=== PATIENT | female | born 1990 | race Caucasian/White ===

== ENCOUNTER → 2016-08-27 | Outpatient (CLI) | payer OTHER ==
[~2016-08-27] MED LIST: IBUP80TA PO; PERCOCET PO; PRENTAB7 PO
[2016-08-27 09:39] LABS: ALBUMIN 3.6 GM/DL (3.2-5.2); ALBUMIN/GLOBULIN RATIO 1.06 (1.00-1.93); ALKALINE PHOSPHATASE 51 U/L (45-117); ALT/SGPT 32 U/L (12-78); ANION GAP 8 MEQ/L (8-16); AST/SGOT 22 U/L (15-37); BILIRUBIN,TOTAL 0.5 MG/DL (0.2-1.0); BLOOD UREA NITROGEN 16 MG/DL (7-18); CALCIUM LEVEL 8.6 MG/DL (8.5-10.1); CARBON DIOXIDE LEVEL 28 MEQ/L (21-32); CHLORIDE LEVEL 105 MEQ/L (98-107); CHOLESTEROL LEVEL 181 MG/DL (<200); FREE T4 1.17 NG/DL (0.76-1.46); GLOMERULAR FILTRATION RATE > 60.0 (>60); GLUCOSE, FASTING 91 MG/DL (70-105); POTASSIUM SERUM 4.2 MEQ/L (3.5-5.1); SODIUM LEVEL 141 MEQ/L (136-145); TRIGLYCERIDES LEVEL 85 MG/DL (<150)
== END ==
LOC: M LAB 08:39
PROVIDERS: ATTEND Nurse Practitioner Family
DX: E66.3 Overweight (principal)

== ENCOUNTER → 2016-11-22 | Outpatient (REF) | payer OTHER ==
[2016-11-22 18:54] LABS: CONTROL LINE UCG INT CTR LINE PRESENT
== END ==
LOC: M LAB REF 17:07
PROVIDERS: ATTEND Physician Assistant
DX: M54.5 Low back pain (principal); J20.9 Acute bronchitis, unspecified

== ENCOUNTER → 2016-11-26 | Outpatient (REF) | payer OTHER | LOC: M SFHCPLAZ 16:18 | PROVIDERS: ATTEND Nurse Practitioner Family | DX: N91.2 Amenorrhea, unspecified (principal) ==

== ENCOUNTER → 2016-11-26 | Outpatient (CLI) | payer OTHER ==
[2016-11-26 18:03] LABS: CONTROL LINE HCG INT CTR LINE PRESENT
== END ==
LOC: M LAB 16:49
PROVIDERS: ATTEND Nurse Practitioner Family
DX: N91.2 Amenorrhea, unspecified (principal)

== ENCOUNTER 2017-12-03 06:49 | Day surgery (SDC) | payer OTHER ==
[2017-12-03] MEDS ORDERED: LR 1,000 ML IV (07:00)
[2017-12-03] MEDS: LIDOCAINE 3.5 % 1ML OPHTH TOPICAL GEL OU (07:30)
[2017-12-03 07:44] LABS: CONTROL LINE UCG INT CTR LINE PRESENT; URINE PREG TEST NEGATIVE (NEGATIVE)
[2017-12-03] MEDS ORDERED: MIDAZOLAM INJ 2 MG/2 ML VIAL (J2250) As Ordered (07:56)
[2017-12-03] MEDS ORDERED: fentaNYL 100 MCG/2 ML INJECTION (J3010) As Ordered (07:56)
[2017-12-03] MEDS ORDERED: MAXITROL OPHTH SUSP 5 ML As Ordered (08:57)
[2017-12-03] MEDS: POVIDONE-IODINE 5% OPHTH PREP SOL 30ML As Ordered (09:05)
[2017-12-03] MEDS ORDERED: LIDOCAINE 2% INJ 100 MG/5 ML SDV (FOR ANES.) As Ordered (09:36)
[2017-12-03] MEDS ORDERED: PROPOFOL 200 MG/20 ML VIAL As Ordered ×3 (09:36)
[2017-12-03] MEDS ORDERED: IBUPROFEN 600 MG TAB As Ordered (10:01)
[2017-12-03] MEDS: IBUPROFEN 600 MG TAB PO (10:10)
== END 2017-12-03 10:48 | disposition home or self-care (01) ==
LOC: M SDC 06:49
DX: H04.203 Unspecified epiphora, bilateral (principal); F41.9 Anxiety disorder, unspecified; Z79.899 Other long term (current) drug therapy
CPT/HCPCS: 68811

== ENCOUNTER → 2017-12-25 | Outpatient (REF) | payer OTHER ==
[2017-12-26 14:14] LABS: CHLAMYDIA DNA AMPLIFICATION NEGATIVE (NEGATIVE); GC DNA AMPLIFICATION NEGATIVE (NEGATIVE)
== END ==
LOC: M SFHCPLAZ 10:27
DX: R35.0 Frequency of micturition (principal)

== ENCOUNTER → 2017-12-25 | Outpatient (REF) | payer OTHER ==
[2017-12-26 08:13] LABS: CHLAMYDIA DNA AMPLIFICATION NEGATIVE (NEGATIVE); GC DNA AMPLIFICATION NEGATIVE (NEGATIVE)
== END ==
LOC: M SFHCPLAZ 07:37
DX: R35.0 Frequency of micturition (principal)

== ENCOUNTER → 2019-01-14 | Outpatient (CLI) | payer OTHER ==
[~2019-01-14] MED LIST changes: +AUGM875T28; +ESCI20TA; +FISH100049 PO; +JUNETAB2; +OFLO3OPSO; +PROBCAP4 PO; +SUPECAP24 PO; +VITA100067 PO
[2019-01-14 10:06] LABS: ALBUMIN 3.4 GM/DL (3.2-5.2); ALT/SGPT 86 U/L (12-78); BILIRUBIN,TOTAL 0.6 MG/DL (0.2-1.0); BLOOD UREA NITROGEN 14 MG/DL (7-18); CARBON DIOXIDE LEVEL 29 MEQ/L (21-32); CHLORIDE LEVEL 104 MEQ/L (98-107); CHOLESTEROL LEVEL 213 MG/DL (<200); CHOLESTEROL RISK RATIO 2.696 (<5); CREATININE FOR GFR 0.87 MG/DL (0.55-1.30); GLOMERULAR FILTRATION RATE > 60.0 (>60); GLUCOSE, FASTING 92 MG/DL (70-100); HDL CHOLESTEROL 79 MG/DL (>40); LDL CHOLESTEROL 116 MG/DL (<100); NON-HDL-C 134 MG/DL; POTASSIUM SERUM 4.5 MEQ/L (3.5-5.1); SODIUM LEVEL 139 MEQ/L (136-145); TOTAL PROTEIN 6.9 GM/DL (6.4-8.2); TRIGLYCERIDES LEVEL 89 MG/DL (<150)
[2019-01-14 10:38] LABS: TOTAL 25(OH) VITAMIN D 26.7 NG/ML (30.0-100.0)
== END ==
LOC: M LAB 08:50
PROVIDERS: ATTEND Nurse Practitioner Family
DX: Z00.00 Encounter for general adult medical examination without abnormal findings (principal); F41.8 Other specified anxiety disorders; Z68.38 Body mass index [BMI] 38.0-38.9, adult; Z13.220 Encounter for screening for lipoid disorders

== ENCOUNTER → 2019-03-29 | Outpatient (CLI) | payer OTHER ==
[2019-03-29 13:02] LABS: ALBUMIN 3.5 GM/DL (3.2-5.2); ALT/SGPT 35 U/L (12-78); BILIRUBIN,TOTAL 0.5 MG/DL (0.2-1.0); BLOOD UREA NITROGEN 14 MG/DL (7-18); CALCIUM LEVEL 8.7 MG/DL (8.5-10.1); CARBON DIOXIDE LEVEL 28 MEQ/L (21-32); CHLORIDE LEVEL 106 MEQ/L (98-107); CREATININE FOR GFR 0.87 MG/DL (0.55-1.30); GLOMERULAR FILTRATION RATE > 60.0 (>60); GLUCOSE, FASTING 92 MG/DL (70-100); POTASSIUM SERUM 4.1 MEQ/L (3.5-5.1); SODIUM LEVEL 140 MEQ/L (136-145); TOTAL PROTEIN 6.7 GM/DL (6.4-8.2)
== END ==
LOC: M LAB 12:14
PROVIDERS: ATTEND Nurse Practitioner Family
DX: R94.5 Abnormal results of liver function studies (principal)

== ENCOUNTER → 2019-09-04 | Outpatient (REF) | payer OTHER ==
[2019-09-04 13:08] LABS: BASO % 0.6 % (0.0-1.0); EOS # 0.1 10^3/uL (0.0-0.5); EOS % 1.6 % (0.0-3.0); HEMATOCRIT 48.4 % (36.0-47.0); HEMOGLOBIN 15.2 g/dl (12.0-15.5); LYMPH # 2.8 10^3/uL (1.5-5.0); LYMPH % 40.8 % (24.0-44.0); MEAN CORPUSCULAR HEMOGLOBIN 29.4 pg (27.0-33.0); MEAN CORPUSCULAR HGB CONC 31.4 g/dl (32.0-36.5); MEAN CORPUSCULAR VOLUME 93.6 fl (80.0-96.0); MONO # 0.6 10^3/uL (0.0-0.8); MONO % 8.9 % (0.0-5.0); NEUTROPHILS # 3.2 10^3/uL (1.5-8.5); NEUTROPHILS % 47.8 % (36.0-66.0); PLATELET COUNT, AUTOMATED 351 10^3/uL (150-450); RED BLOOD COUNT 5.17 10^6/uL (4.00-5.40); WHITE BLOOD COUNT 6.7 10^3/uL (4.0-10.0)
[2019-09-04 13:59] LABS: ALBUMIN 4.1 GM/DL (3.2-5.2); ALT/SGPT 26 U/L (12-78); BILIRUBIN,TOTAL 0.5 MG/DL (0.2-1.0); BLOOD UREA NITROGEN 16 MG/DL (7-18); CALCIUM LEVEL 9.2 MG/DL (8.5-10.1); CARBON DIOXIDE LEVEL 28 MEQ/L (21-32); CHLORIDE LEVEL 106 MEQ/L (98-107); CHOLESTEROL LEVEL 197 MG/DL (<200); CHOLESTEROL RISK RATIO 2.592 (<5); CREATININE FOR GFR 0.95 MG/DL (0.55-1.30); FREE T4 1.14 NG/DL (0.76-1.46); GLOMERULAR FILTRATION RATE > 60.0 (>60); GLUCOSE, FASTING 102 MG/DL (70-100); HDL CHOLESTEROL 76 MG/DL (>40); LDL CHOLESTEROL 108 MG/DL (<100); NON-HDL-C 121 MG/DL; POTASSIUM SERUM 4.3 MEQ/L (3.5-5.1); SODIUM LEVEL 140 MEQ/L (136-145); TOTAL PROTEIN 7.4 GM/DL (6.4-8.2); TRIGLYCERIDES LEVEL 66 MG/DL (<150)
[2019-09-04 14:00] LABS: TOTAL 25(OH) VITAMIN D 41.3 NG/ML (30.0-100.0)
== END ==
LOC: M LAB REF 12:33
PROVIDERS: ATTEND Family Medicine
DX: Z13.228 Encounter for screening for other metabolic disorders (principal); M25.50 Pain in unspecified joint

== ENCOUNTER → 2019-10-07 | Outpatient (CLI) | payer OTHER ==
[2019-10-07 17:25] LABS: APPEARANCE, URINE CLEAR (CLEAR); BACTERIA, URINE AUTO NEGATIVE (NEGATIVE); BILIRUBIN, URINE AUTO NEGATIVE (NEGATIVE); BLOOD, URINE BLOOD NEGATIVE (NEGATIVE); COLOR, URINE STRAW (YELLOW); GLUCOSE, URINE (UA) AUTO NEGATIVE (NEGATIVE); KETONE, URINE AUTO NEGATIVE (NEGATIVE); LEUKOCYTE ESTERASE, URINE AUTO NEGATIVE (NEGATIVE); NITRITE, URINE AUTO NEGATIVE (NEGATIVE); PROTEIN, URINE AUTO NEGATIVE (NEGATIVE); RBC, URINE AUTO 2 /HPF (0-3); SPECIFIC GRAVITY URINE AUTO 1.008 (1.002-1.035); SQUAMOUS EPITHELIAL CELL UR AU 0 /HPF (0-6); UROBILINOGEN, URINE AUTO 0.2 mg/dL (0.0-2.0); WBC, URINE AUTO 0 /HPF (0-3)
[2019-10-07 17:47] LABS: ALBUMIN 3.6 GM/DL (3.2-5.2); ALT/SGPT 27 U/L (12-78); BILIRUBIN,DIRECT 0.2 MG/DL (0.0-0.2); BILIRUBIN,TOTAL 0.6 MG/DL (0.2-1.0); TOTAL PROTEIN 6.8 GM/DL (6.4-8.2)
[2019-10-07 20:09] LABS: CHLAMYDIA DNA AMPLIFICATION NEGATIVE (NEGATIVE); GC DNA AMPLIFICATION NEGATIVE (NEGATIVE)
[2019-10-09 09:18] LABS: HIV 1&2 SCREEN CENTAUR NEGATIVE (NEGATIVE)
== END ==
LOC: M WUC 12:16
PROVIDERS: ATTEND Family Medicine
DX: Z11.3 Encounter for screening for infections with a predominantly sexual mode of transmission (principal)

== ENCOUNTER → 2020-07-04 | Outpatient (CLI) | payer SELFPAY | LOC: M LABSMTC 15:02 | PROVIDERS: ATTEND Pediatrics | DX: Z20.828 Contact with and (suspected) exposure to other viral communicable diseases (principal) ==

== ENCOUNTER 2020-09-16 09:43 | Emergency (ER) | payer OTHER, SELFPAY ==
[~2020-09-16] VITALS: Ht 175.3 cm; Wt 111.2 kg
[~2020-09-16 09:43] MED LIST changes: -ESCI20TA; +ESCI20TA16
--- OUTSIDE RECORDS SUMMARY | 2020-09-16 09:54 | CCD ---
Author Author [facility] Organization [facility] Address Unknown Phone Unavailable Care Team Providers Care Preparator Name Role Phone Janina Sam MD Unavailable Unavailable Janina Sam MD Unavailable Unavailable Janina Sam MD Unavailable Unavailable Janina Sam MD Unavailable Unavailable Janina Sam MD Unavailable Unavailable Janina Sam MD Unavailable Unavailable Janina Sam MD Unavailable Unavailable Janina Sam MD Unavailable Unavailable Janina Sam MD Unavailable Unavailable Janina Sam MD Unavailable Unavailable Janina Sam MD Unavailable Unavailable Janina Sam MD Unavailable Unavailable Janina Sam MD Unavailable Unavailable Janina Sam MD Unavailable Unavailable Janina Sam MD Unavailable Unavailable Janina Sam MD Unavailable Unavailable Janina Sam MD Unavailable Unavailable Janina Sam MD Unavailable Unavailable Janina Sam MD Unavailable Unavailable Janina Sam MD Unavailable Unavailable Janina Sam MD Unavailable Unavailable Janina Sam MD Unavailable Unavailable Janina Sam MD Unavailable Unavailable Janina Sam MD Unavailable Unavailable Janina Sam MD Unavailable Unavailable Janina Sam MD Unavailable Unavailable Janina Sam MD Unavailable Unavailable Janina Sam MD Unavailable Unavailable Janina Sam MD Unavailable Unavailable Janina Sam MD Unavailable Unavailable Janina Sam MD Unavailable Unavailable Janina Sam MD Unavailable Unavailable Janina Sam MD Unavailable Unavailable Janina Sam MD Unavailable Unavailable Janina Sam MD Unavailable Unavailable Janina Sam MD Unavailable Unavailable Janina Sam MD Unavailable Unavailable Janina Sam MD Unavailable Unavailable Janina Sam MD Unavailable Unavailable Janina Sam MD Unavailable Unavailable Janina Sam MD Unavailable Unavailable Janina Sam MD Unavailable Unavailable Janina Sam MD Unavailable Unavailable Janina Sam MD Unavailable Unavailable Janina Sam MD Unavailable Unavailable Janina Sam MD Unavailable Unavailable Janina Sam MD Unavailable Unavailable Janina Sam MD Unavailable Unavailable Janina Sam MD Unavailable Unavailable Janina Sam MD Unavailable Unavailable Janina Sam MD Unavailable Unavailable Janina Sam MD Unavailable Unavailable Janina Sam MD Unavailable Unavailable Janina Sam MD Unavailable Unavailable Janina Sam MD Unavailable Unavailable Janina Sam MD Unavailable Unavailable Janina Sam MD Unavailable Unavailable Janina Sam MD Unavailable Unavailable Janina Sam MD Unavailable Unavailable Janina Sam MD Unavailable Unavailable Janina Sam MD Unavailable Unavailable Janina Sam MD Unavailable Unavailable Janina Sam MD Unavailable Unavailable Janina Sam MD Unavailable Unavailable Janina Sam MD Unavailable Unavailable Janina Sam MD Unavailable Unavailable Janina Sam MD Unavailable Unavailable Janina Sam MD Unavailable Unavailable Janina Sam MD Unavailable Unavailable Janina Sam MD Unavailable Unavailable Janina Sam MD Unavailable Unavailable Janina Sam MD Unavailable Unavailable Janina Sam MD Unavailable Unavailable Janina Sam MD Unavailable Unavailable Janina Sam MD Unavailable Unavailable Janina Sam MD Unavailable Unavailable Janina Sam MD Unavailable Unavailable Janina Sam MD Unavailable Unavailable Janina Sam MD Unavailable Unavailable Janina Sam MD Unavailable Unavailable Janina Sam MD Unavailable Unavailable Janina Sam MD Unavailable Unavailable Janina Sam MD Unavailable Unavailable Janina Sam MD Unavailable Unavailable Janina Sam MD Unavailable Unavailable Janina Sam MD Unavailable Unavailable Janina Sam MD Unavailable Unavailable Janina Sam MD Unavailable Unavailable Janina Sam MD Unavailable Unavailable Eve JOSHUA MD Unavailable Unavailable Eve JOSHUA MD Unavailable Unavailable Eve JOSHUA MD Unavailable Unavailable Eve JOSHUA MD Unavailable Unavailable Eve JOSHUA MD Unavailable Unavailable Eve JOSHUA MD Unavailable Unavailable Eve JOSHUA MD Unavailable Unavailable Eve JOSHUA MD Unavailable Unavailable Eve JOSHUA MD Unavailable Unavailable Eve JOSHUA MD Unavailable Unavailable Eve JOSHUA MD Unavailable Unavailable Eve JOSHUA MD Unavailable Unavailable Eve JOSHUA MD Unavailable Unavailable Eve JOSHUA MD Unavailable Unavailable Eve JOSHUA MD Unavailable Unavailable Eve JOSHUA MD Unavailable Unavailable Eve JOSHUA MD Unavailable Unavailable Eve JOSHUA MD Unavailable Unavailable Eve JOSHUA MD Unavailable Unavailable Eve JOSHUA MD Unavailable Unavailable Eve JOSHUA MD Unavailable Unavailable Eve JOSHUA MD Unavailable Unavailable Eve JOSHUA MD Unavailable Unavailable Eve JOSHUA MD Unavailable Unavailable Eve JOSHUA MD Unavailable Unavailable Eve JOSHUA MD Unavailable Unavailable Eve JOSHUA MD Unavailable Unavailable Eve JOSHUA MD Unavailable Unavailable Eve JOSHUA MD Unavailable Unavailable Eve JOSHUA MD Unavailable Unavailable Eve JOSHUA MD Unavailable Unavailable Eve JOSHUA MD Unavailable Unavailable Eve JSOHUA MD Unavailable Unavailable Eve JOSHUA MD Unavailable Unavailable Eve JOSHUA MD Unavailable Unavailable Eve JOSHUA MD Unavailable Unavailable Eve JOSHUA MD Unavailable Unavailable Eve JOSHUA MD Unavailable Unavailable Eve JOSHUA MD Unavailable Unavailable vEe JOSHUA MD Unavailable Unavailable Eve JOSHUA MD Unavailable Unavailable Eve JOSHUA MD Unavailable Unavailable Eve JOSHUA MD Unavailable Unavailable Eve JOSHUA MD Unavailable Unavailable Eve JOSHUA MD Unavailable Unavailable Eve JOSHUA MD Unavailable Unavailable Eve JOSHUA MD Unavailable Unavailable Eve JOSHUA MD Unavailable Unavailable Eve JOSHUA MD Unavailable Unavailable Eve JOSHUA MD Unavailable Unavailable Eve JOSHUA MD Unavailable Unavailable Eve JOSHUA MD Unavailable Unavailable Eve JOSHUA MD Unavailable Unavailable Eve JOSHUA MD Unavailable Unavailable Eve JOSHUA MD Unavailable Unavailable Eve JOSHUA MD Unavailable Unavailable Eve JOSHUA MD Unavailable Unavailable Eve JOSHUA MD Unavailable Unavailable Eve JOSHUA MD Unavailable Unavailable Eve JOSHUA MD Unavailable Unavailable JACOBO, Eve SIMPSON MD Unavailable Unavailable JACOBO, Eve SIMPSON MD Unavailable Unavailable JACOBO, Eve SIMPSON MD Unavailable Unavailable JACOBO, Eve SIMPSON MD Unavailable Unavailable JACOBO, Eve ISMPSON MD Unavailable Unavailable JACOBO, Eve SIMPSON MD Unavailable Unavailable JACOBO, Eve SIMPSON MD Unavailable Unavailable JACOBO, Eve SIMPSON MD Unavailable Unavailable JACOBO, Eve SIMPSON MD Unavailable Unavailable JACOBO, Eve SIMPSON MD Unavailable Unavailable JACOBO, Eve SIMPSON MD Unavailable Unavailable JACOBO, Eve SIMPSON MD Unavailable Unavailable JACOBO, Eve SIMPSON MD Unavailable Unavailable JACOBO, Eve SIMPSON MD Unavailable Unavailable JACOBO, Eve SIMPSON MD Unavailable Unavailable JACOBO, Eve SIMPSON MD Unavailable Unavailable JACOBO, Eve SIMPSON MD Unavailable Unavailable JACOBO, Eve SIMPSON MD Unavailable Unavailable JACOBO, Eve SIMPSON MD Unavailable Unavailable JACOBO, Eve SIMPSON MD Unavailable Unavailable JACOBO, Eve SIMPSON MD Unavailable Unavailable JACOBO, Eve SIMPSON MD Unavailable Unavailable JACOBO, Eve SIMPSON MD Unavailable Unavailable Quiñones, Silvia PLANT ECOLOGIST Unavailable Unavailable Quiñones, Silvia PLANT ECOLOGIST Unavailable Unavailable Quiñones, Silvia PLANT ECOLOGIST Unavailable Unavailable Quiñones, Silvia PLANT ECOLOGIST Unavailable Unavailable Quiñones, Silvia PLANT ECOLOGIST Unavailable Unavailable Quiñones, Silvia PLANT ECOLOGIST Unavailable Unavailable Quiñones, Silvia PLANT ECOLOGIST Unavailable Unavailable Quiñones, Silvia PLANT ECOLOGIST Unavailable Unavailable Quiñones, Silvia PLANT ECOLOGIST Unavailable Unavailable Quiñones, Silvia PLANT ECOLOGIST Unavailable Unavailable Quiñones, Silvia PLANT ECOLOGIST Unavailable Unavailable Re-disclosure Warning The records that you are about to access may contain information from federally-assisted alcohol or drug abuse programs. If such information is present, then the following federally mandated warning applies: This information has been disclosed to you from records protected by federal confidentiality rules (42 CFR part 2). The federal rules prohibit you from making any further disclosure of this information unless further disclosure is expressly permitted by the written consent of the person to whom it pertains or as otherwise permitted by 42 CFR part 2. A general authorization for the release of medical or other information is NOT sufficient for this purpose. The Federal rules restrict any use of the information to criminally investigate or prosecute any alcohol or drug abuse patient.The records that you are about to access may contain highly sensitive health information, the redisclosure of which is protected by Article 27-F of the [facility] Public Health law. If you continue you may have access to information: Regarding HIV / AIDS; Provided by facilities licensed or operated by the [facility] Office of Mental Health; or Provided by the [facility] Office for People With Developmental Disabilities. If such information is present, then the following [facility] mandated warning applies: This information has been disclosed to you from confidential records which are protected by state law. State law prohibits you from making any further disclosure of this information without the specific written consent of the person to whom it pertains, or as otherwise permitted by law. Any unauthorized further disclosure in violation of state law may result in a fine or correction sentence or both. A general authorization for the release of medical or other information is NOT sufficient authorization for further disc losure. Encounters Encounter Providers Location Date Indications Data Source(s ) Outpatient Attender: Silvia chen 06/13/2020 07:35:00 AM EST [facility] ([facility], [facility]) Outpatient Attender: Lio Sam MD 05/27/2020 10:17:00 AM EDT [facility] Outpatient Attender: Lio Sam MD 05/27/2020 08:57:01 AM EDT [facility] Outpatient Attender: Lio Sam MD 05/19/2020 04:49:01 PM EDT [facility] Outpatient Attender: Lio Sam MD 05/12/2020 09:43:00 AM EDT [facility] Outpatient Attender: Lio Sam MD 05/01/2020 10:04:00 AM EDT [facility] Outpatient Attender: Lio Sam MD 04/29/2020 04:42:01 PM EDT [facility] Outpatient Attender: Lio Sam MD 04/29/2020 04:41:01 PM EDT [facility] Outpatient Attender: Lio Sam MD 04/29/2020 03:16:00 PM EDT [facility] Outpatient Attender: Lio Sam MD 04/01/2020 01:24:00 PM EDT [facility] Outpatient Attender: Lio Sam MD 03/18/2020 08:45:02 AM EDT [facility] Outpatient Attender: Lio SOLIS 02/12/2020 08:01:20 [address] [address] 11/16/2019 12:00:00 AM EDT [facility]CW1 ([facility]) Outpatient Attender: Lio Sam MD FP 10/20/2019 01:04:00 PM EDT [facility] Outpatient Attender: Lio Sam MD FP 10/13/2019 05:50:00 PM EDT [facility] Outpatient Attender: Lio Sam MD FP 10/13/2019 05:46:00 PM EDT [facility] Outpatient Attender: Lio Sam MD FP 10/12/2019 11:32:01 AM EDT [facility] Outpatient Attender: TATIANA JOSHUA MD FP 10/09/2019 12:22:01 P M [facility] Outpatient Attender: TATIANA JOSHUA MD FP 10/08/2019 11:22:37 A M T [facility] Outpatient Attender: TATIANA JOSHUA MD FP 10/07/2019 06:13:01 P [facility] Outpatient Attender: TATIANA JOSHUA MD FP 10/07/2019 06:13:01 P M [facility] Outpatient Attender: TATIANA JOSHUA MD FP 10/06/2019 04:09:01 P [facility] Outpatient Attender: TATIANA JOSHUA MD FP 10/02/2019 01:12:02 P [facility] Outpatient Attender: TATIANA JOSHUA MD FP 10/02/2019 01:11:01 P [facility] Outpatient Attender: TATIANA JOSHUA MD FP 09/17/2019 12:03:02 P [facility] Outpatient Attender: TATIANA JOSHUA MD FP 09/16/2019 11:23:02 A [facility] Outpatient Attender: TATIANA JOSHUA MD FP 09/16/2019 11:23:01 A [facility] Outpatient Attender: TATIANA JOSHUA MD FP 09/15/2019 03:41:00 P [facility] Outpatient Attender: TATIANA JOSHUA MD FP 09/09/2019 05:23:01 P [facility] Outpatient Attender: TATIANA JOSHUA MD FP 09/04/2019 10:09:01 A [facility] Outpatient Attender: TATIANA JOSHUA MD 09/04/2019 10:08:00 A [facility] Outpatient Attender: TATIANA JOSHUA MD 09/04/2019 09:31:02 A [facility] Outpatient Attender: TATIANA JOSHUA MD 09/01/2019 04:18:00 P [facility] Outpatient Attender: TATIANA JOSHUA MD 07/29/2019 11:50:01 A [facility] Outpatient Attender: TATIANA JOSHUA MD 07/28/2019 11:44:01 A [facility] Outpatient Attender: TATIANA JOSHUA MD 07/28/2019 11:43:00 A [facility] Outpatient Attender: TATIANA JOSHUA MD 07/28/2019 11:41:00 A [facility] Outpatient Attender: TATIANA JOSHUA MD 07/28/2019 11:39:01 A [facility] Outpatient Attender: TATIANA JOSHUA MD 07/24/2019 10:52:01 A [facility] Out[facility] 07/24/2019 10:51:00 AM [facility] Insurance Providers Payer name Policy type / Coverage type Policy ID Covered republican ID Covered republican's relationship to santoyo Policy Santoyo Plan Information SELF PAY ONLY [id number] SP [id number] R [facility] [id number] SP [id number] D [employer] Ins S [id number] S [id number] UMR P [id number] S [id number] UMR P [id number] S [id number] Armenian Heritage S [id number] S [id number] Medicaid Dental P [id number] S [id number] [employer]AN [facility] [id number] SP [id number] [facility]) O [id number] S [id number] MEDICAID M [id number] S [id number] ANS-Medicaid [id number] ANSI-Medicaid [id number] ANSI-Medicaid [id number] ANSI-Medicaid [id number] ANSI-Medicaid [id number] ANSI-Medicaid [id number] ANSI-Medicaid [id number] ANSI-Medicaid [id number] [facility] [id number] Self [id number] ANSI-Medicaid [id number] ANSI-Medicaid [id number] ANSI-Medicaid [id number] ANSI-Medicaid [id number] [facility] [id number] [facility] [id number] [employer] PLAN MCDO [id number] SP [id number] [facility] Health Maintenance Organization (HMO) [id number] Self [id number] MVP MCDO [id number] SP [id number] [facility] [id number] SP [id number] [facility] [id number] SP [id number] MEDICAID [id number] SP [id number] SELF PAY UNAVAILABLE SP UNAVAILA BLE [place] Self BCBS OF [place] 306/806 [id number] [id number] [employer] BCBS P [id number] C VYA D [employer] BCBS Dental O [id number] P [id number] Problems, Conditions, and Diagnoses Code Display Name Description Problem Type Effective Dates Data Source(s) 311 Chronic depression Chronic depression 0 04:40:09 PM EDT [facility] V74.5 Screening examination for venereal disea se Screening examination for venereal disease 10/02/2019 01:10:13 PM [facility] M25.50 Pain in unspecified joint Pain in unspecified joint 07/29/2019 11:49:47 AM [facility] Z13.228 Encounter for screening for other metabo lic disorders Encounter for screening for other metabolic disorders 07/29/2019 11:49:47 AM [facility] Results ID Date Data Source [id number] 07/04/2020 12:00:00 AM EST [facility] Name Value Range Interpretation Code Description Data Susan rce(s) Supporting Document(s) 2019-nCoV RNA XXX CORRINE+probe-Imp [facility] This lab was ordered by [facility] and reported by [facility]. ID Date Data Source [id number] 06/13/2020 12:00:00 AM EST [facility] Name Value Range Interpretation Code Description Data Susan rce(s) Supporting Document(s) SARS coronavirus 2 Ag [facility] This lab was ordered by [facility] and reported by [facility]. ID Date Data Source [id number] 05/27/2020 08:32:28 AM EDT [facility] Vital SignsBlood Pressure: 134/83 Patient History Medical History:AnxietyDepressionPanic attacksHeart murmurIrritable bowel syndromeSurgical History:csectionanal fistula surgeryFamily History:Mother- thyroidMaternal Grandmother- StrokeSocial/Personal History: Current Problems: Chronic depression (ICD-311) (FQF32-D12.1)Screening examination for venereal disease (ICD-V74.5) (LKL20-F98.3)Pain in unspecified joint (ICD10- M25.50)Encounter for screening for other metabolic disorders (ICD10- Z13.228)Problem list reviewed during this update.Current Medications: 1.5-30 MG-MCG ORAL TABLET (NORETHIN JAVIER-ETH ESTRAD-FE) one tab po QD as dir; Route: ORALACIDOPHILUS ORAL TABLET CHEWABLE (PROBIOTIC PRODUCT) One tablet by mouth every Bozena VITAMIN D-3 25 MCG (1000 UT) ORAL TABLET (CHOLECALCIFEROL) One po bid; Route: ORALZOLOFT 50 MG ORAL TABLET (SERTRALINE HCL) qd; Route: ORALMedication list reviewed during this update.Allergy list reviewed during this update.No known allergies.Past Medical History:(reviewed - no changes required) AnxietyDepressionPanic attacksHeart murmurIrritable bowel syndrome Dental Chart: Procedures:Type - CDT Code - Description B - (D1110) Prophylaxis, adult (Performed by Suzanne Cain RDH) B - (D0274) Bitewings, 4 radiographic images (Performed by Suzanne Cain RDH) B - (D0150) Comprehensive oral evaluation - new or established patient (Performed by Siobhan Gates DMD) B - (D0230) Intraoral, periapical, each additional radiographic image on Tooth # 10 (Performed by Suzanne Cain RDH) B - (D0220) Intraoral, periapical, first radiographic image on Tooth # 7 (Performed by Suzanne Cain RDH) B - (D0230) Intraoral, periapical, each additional radiographic image on Tooth # 9 (Performed by Suzanne Cain RDH) Existing:Type - CDT Code - Description[E] Resin-Based Composite - Direct On #12 Surface OD, #13 Surface OD, #14 Surface MO Chart Notes:tanya (May 27 2020 9:25AM): Additional PPE requirements due to COVID-19 in the dental setting, N95, surgical mask, hair covering, gown. [facility] with patient. No problems or concerns today. Pt. was seeing Dr. Arias. Pt. has a lingual retainerOral cancer screening-no significant find ings. [facility]- handscaled and used cavitron in all quads-pt. tolerated well, lao- mint prophy paste, floss, 4 BW's, 3 PA'sOH-Patient brushes once/day and is not flossing regularly. Pt. uses Sensitivity toothpasteLT gen marginal biofilm and marginal/introproximal calculus on LA. Light staining around the lingual retainerOHI- Advise to brush 2x a day and floss everyday. Recommended Listerine ZeroPatient is cooperative. NV- 6 month recallWaSuzanne villarreal RDH by tanya (05/27/2020 9:25 AM): ; lenard (May 27 2020 10:16AM): [facility](-). CC: none. Reviewed Xrays. Exam: no caries detected. OCS: WNL, IO/ EO completed, No significant hard findings upon clinical exam.Additional PPE requirements due to COVID-19 in the dental setting, N95, surgical mask, hair covering, gown and shieldPt was cooperative. OHI given Referral: N/A NV:recallWaSuzanne villarreal RDH by lenard (05/27/2020 10:16 AM): Tooth Notes and Watches:- Tooth 5 Watch: DistalSuzanne Cain RDH by tanya (05/27/2020 9:03 AM): Assessment & Plan Medications: 1.5-30 MG- MCG ORAL TABLETACIDOPHILUS ORAL TABLET CHEWABLERA VITAMIN D-3 25 MCG (1000 UT) ORAL TABLETZOLOFT 50 MG ORAL TABLETAllergies:No Known Allergies (updated 05/27/2020) Name Value Range Interpretation Code Description Data Susan rce(s) Supporting Document(s) ID Date Data Source [id number] 04/29/2020 03:13:25 PM EDT [facility] Measurements & CalculationsHeight: 69 inches (5 ft. 9 in.) 175.26 cm Weight: 254 pounds 4 oz. 115.57 kg Body Mass Index (BMI): 37.68BMI Interpretation: ObeseBody Surface Area (BSA): 2.29Weight Management Education Done (Nutrition/Physical Activity)Vital SignsTemperature: 99F oral Pulse Rate: 73 beats/minuteRespirat ory Rate: 18 respirations/minuteBlood Pressure: 131/90 right arm sitting automaticO2 Saturation: 96% room airVital Signs performed by: Felipe Marroquin LPN, April 29, 2020 3:37 PMInitial Intake Information From: patientRoom #: 15Infectious Disease / Travel ScreeningRecent travel for you or any close contacts? NoHave you had any close contact with anyone diagnosed with or under investigation for COVID-19 (coronavirus)? NoFever? NoRespiratory symptoms: cough, cold, congestion, shortness of breath, difficulty breathing? NoLoss of smell? NoLoss of taste? NoSmoking, Tobacco, Vaping or Smoke Exposure StatusSmoke Status: never smokerTobacco Use: NoDo you vape? NoMenstrual HistoryLast Menstrual Period (LMP): 04/18/2020Any possibility of ? NoComments: on Healthcare HistorySince your last office visit...Have you been admitted to the hospital? NoHave you been to an emergency room (ER) or urgent care clinic? NoHave you seen another healthcare provider? Yes - tuyet gossHave you seen a dentist? Yes - [facility] Intake performed by: Felipe Marroquin LPN, April 29, 2020 3:19 PMRate Your HealthIn general, would you say your health is? GoodPain AssessmentAre you currently having any pain which... You would like your provider to address? Yes Affects your activity level? YesDepression Screening - PHQ-2Over the last two weeks, have you... Had little interest or pleasure in doing things? Several days Been feeling down, depressed, or hopeless? Several days PHQ-2 Score: 2Anxiety Screening - JAZMIN-2Over the last two weeks, have you been... Feeling nervous, anxious, or on edge? Not at all Unable to stop or control worrying? Nearly every day JAZMIN-2 Score: 3Generalized Anxiety Disorder 7-Item Screening (JAZMIN- 7)Answer Guide:0 = Not at all1 = Several days2 = Over half the days3 = Nearly every dayOver the last 2 weeks, how often have you been bothered by the following problems?Feeling nervous, anxious, or on edge: 0Not being able to stop or control worryinWorrying too much about different things: 3Trouble relaxinBeing so restless that it's hard to sit still: 0Becoming easily annoyed or irritable: 2Feeling afraid as if something awful might happen: 0Answ er Guide:0 = Not difficult at all1 = Somewhat difficult2 = Very difficult3 = Extremely difficultHow difficult have these made it for you to do your work, take care of things at home, or get along with other people? 1GAD-7 Screening Results JAZMIN-2 Score: 3GAD-7 Score: 9Functional Impairment: Somewhat difficultRecommendation: Mild anxietyPHQ-9 1. Over the last 2 weeks, patient reports the following frequency of symptoms: a. Little interest or pleasure in doing things -Several days b. Feeling down, depressed, or hopeless -Several days c. Trouble falling asleep, staying asleep, or sleeping too much -Not at all d. Feeling tired or having little energy - Not at all e. Poor appetite or overeating -More than half the days f. Feeling bad about yourself, feeling that you are a failure, or feeling that you have let yourself or your family down -Not at all g. Trouble concentrating on things such as reading the newspaper or watching television -Not at all h. Moving or speaking so slowly that other people could have noticed. Or being so fidgety or restless that you have been moving around a lot more than usual -Not at all i. Thinking that you would be better off or that you want to hurt yourself in some way -Several days2. If you checked off any problems, how difficult have these problems made it for you to do your work, take care of things at home, or get along with other people? -Somewhat DifficultToday's PHQ-9 Results Score: 5 Severity: Mild Diagnosis Recommendation: No recommendation Functional Impairment: Somewhat DifficultPain AssessmentPain ScaleNumeric Rating Scale: 4 / 10Location: lower back Duration: 1 monthFrequency: DailyCharacter/Quality: aching and stabbingIs the pain radiating? NoScreening, Brief Intervention, & Referral to Treatment (SBIRT)Pre-Screening Questions How many times have you have 4 or more drinks in a day? 24How many times have you used an illegal drug or used a prescription medication for a non-medical reason? 0Performed by: Felipe Marroquin LPN, April 29, 2020 3:25 PMAUDIT How often do you have a drink of alcohol? 2-4 times a month How many drinks containing alcohol do you have on a typical day when you are drinking? 3 or 4 How often do you have four or more drinks on one occasion? MonthlyIn the last year, how often have you... Found that you were not able to stop drinking once you had started? Never Failed to do what was normally expected of you because of drinking? Never Needed a first drink in the morning to get yourself going after a heavy drinking session? Never Had a feeling of guilt or remorse after drinking? Never Been unable to remember what happened the night before because you had been drinking? Never Have you or someone else been injured because of your drinking? No Has a relative, friend, doctor, or other health care worker been concerned about your drinking or suggested you cut down? Rebekah's Results: AUDIT Score: 5 AUDIT Interpretation: Negative Performed by: Felipe Marroquin LPN, April 29, 2020 3:28 PMPatient History Medical History:AnxietyDepressionPanic attacksHeart murmurIrritable bowel syndromeSurgical History:csectionanal fistula surgeryFamily History:Mother- t hyroidMaternal Grandmother- StrokeSocial/Personal History: Chief Complaintmedication refill RM 15 History of Present Illness (HPI)Zoloft has been helping and she is not having any adverse effects.She takes 1/2 a pill for 2 weeks and takes a full pill around her period when things get worse.Sees a counsellor and this is going well.No thoughts of self harm.HPI performed by: Lio Sam MD, April 29, 2020 4:29 PMTransitions of Care InboundProblem ReviewProblem List was reviewed and/or updated during this visit.Medication Reconciliation & ReviewMedication List was reviewed and/or updated during this visit, including review of any hqtz-tcy-tollimv medications, herbal therapies, and/or supplements.Allergy ReviewAllergy List was reviewed and/or updated during this visit.Adult Preventive CareProvider Calculated and Reviewed all Clinical Protocols for patient today. Labs/Meds/Other Counseling-Nutrition and Physical Activity:BMI Interpretation: Obese (04/29/2020) Counseling: Done (04/29/2020) Physical Activity: Done (04/29/2020)Review of Systems General: Denies dizziness, fatigue. Cardiovascular: Denies chest pain. Respiratory: Denies shortness of breath. Gastrointestinal: Denies diarrhea, constipation. Genitourinary: Denies pain with urination, urinary frequency, urinary urgency, incomplete emptying. Physical ExamGeneral Appearance: well nourished, well hydrated, no acute distressRespiratory, Auscultation: clear to auscultation bilaterally; no rales, rhonchi, or wheezesRespiratory, Effort: no intercostal retractions or use of accessory musclesCardiovascular, Auscultation: S1, S2 audible; no murmur, rub, or gallop; RRRPeripheral Circulation: no clubbing, cyanosis, edema, or varicositiesGait & Station: normalSkin, Inspection: no rashes, lesions, or ulcerationsOrientation: oriented to time, place, and personMood & Affect: no depression, anxiety, or agitationJudgment & Insight: intactCare Management Plan Transitions of CareInboundRate Your HealthIn general, would you say your health is? GoodAssessment & Plan Problems:Added: Chronic depression (ICD-311) (ICD10- F34.1) Assessment: Instructions: Doing well.Conitnue current dose of Zoloft and recheck here 3 months.Patient Instructions/Care Plan: Chronic depression: Doing well.Conitnue current dose of Zoloft and recheck here 3 months. Plan developed in collaboration with patient and/or familyMedications: 1.5-30 MG-MCG ORAL TABLETACIDOPHILUS ORAL TABLET CHEWABLERA VITAMIN D-3 25 MCG (1000 UT) ORAL TABLETZOLOFT 50 MG ORAL TABLETMedication Changes:Refilled:ZOLOFT 50 MG ORAL TABLET-qd Qty: 30[Tablet] Refills: 5 Method: ElectronicRA VITAMIN D-3 25 MCG (1000 UT) ORAL TABLET-One po bid Qty: 60[Tablet] Refills: 2 Method: ElectronicACIDOPHILUS ORAL TABLET CHEWABLE-One tablet by mouth every day Qty: 30[Tablet] Refills: 5 Method: ElectronicChanged:From: ORAL VITAMIN D-[address] TABLET Qty: [id number] Refills: 60[Tablet] To: RA VITAMIN D-3 25 MCG (1000 UT) ORAL TABLET-One po bid Qty: 60[Tablet] Refills: 2 To: ACIDOPHILUS ORAL TABLET CHEWABLE-One tablet by mouth every day Qty: 30[Tablet] Refills: 5Allergies:No Known Allergies (updated 07/28/2019) Orders:Adult - Ofc Vst, EST, Level III [CPT-63316] Medications:ACIDOPHILUS ORAL TABLET CHEWABLE (PROBIOTIC PRODUCT) One tablet by mouth every day #30[Tablet] x 5 Entered and Authorized by: Lio Sam MD Method used: Electronically to [facility]* (mail-order) [address] [place], [place] [address] [address] [place] [address] Note to Pharmacy: Route: ORAL; RxID: [id number] VITAMIN D-3 25 MCG (1000 UT) ORAL TABLET (CHOLECALCIFEROL) One po bid #60[Tablet] x 2 Route:ORAL Entered and Authorized by: Lio Sam MD Method used: Electronically to [facility]* (mail-order) [address] [place], [place] [address] Note to Pharmacy: Route: ORAL; RxID: [id number] 50 MG ORAL TABLET (SERTRALINE HCL) qd #30[Tablet] x 5 Route:ORAL Entered and Authorized by: Lio Sam MD Method used: Electronically to [facility]* (mail-order) [address] [place], [place] [address] Note to Pharmacy: Route: ORAL; RxID: [id number] signed by Lio Sam MD on 04/29/2020 at 4:40 PM Name Value Range Interpretation Code Description Data Susan rce(s) Supporting Document(s) ID Date Data Source [id number] 10/13/2019 05:10:06 PM EDT [facility] Measurements & CalculationsHeight: 69 inches (5 ft. 9 in.) 175.26 cm Weight: 258 pounds 8 oz. 117.50 kg Body Mass Index (BMI): 38.31BMI Interpretation: ObeseBody Surface Area (BSA): 2.31Vital SignsTemperature: 98.3F oral Pulse Rate: 64 beats/minuteRespiratory Rate: 16 respirations/minuteBlood Pressure: 142/91 left arm sitting automaticO2 Saturation: 96% room airVital Signs performed by: Felipe Marroquin MA, October 13, 2019 5:29 PMInitial Intake Information from: patientRoom #: 14Smoking, Tobacco, Vaping or Smoke Exposure StatusSmoke Status: never smokerTobacco Use: NoDo you vape? NoPassive Smoke Exposure: NoMenstrual HistoryLast Menstrual Period (LMP): 08/28/2019Any possibility of ? NoComments: irregular periods Healthcare HistorySince your last office visit...Have you been admitted to the hospital? NoHave you been to an emergency room (ER) or urgent care clinic? NoHave you seen another healthcare provider? NoHave you seen a dentist? Yes - NCFHCIntake performed by: Felipe Marroquin MA, October 13, 2019 5:16 PMRate Your HealthIn general, would you say your health is? GoodPain AssessmentAre you currently having any pain which... You would like your provider to address? No Affects your activity level? NoDepression Screening - PHQ-2Over the last two weeks, have you... Had little interest or pleasure in doing things? Nearly every day Been feeling down, depressed, or hopeless? Nearly every day PHQ-2 Score: 6Anxiety Screening - JAZMIN- 2Over the last two weeks, have you been... Feeling nervous, anxious, or on edge? Several days Unable to stop or control worrying? Nearly every day JAZMIN-2 Score: 4Food InsecurityWithin the past year...Did you worry whether your food w ould run out before you got money to buy more? NoWas there a time when the food you bought didn't last and you didn't have money to get more? NoInfectious Disease / Travel ScreeningRecent travel for you, your family, and/or any sexual partners? NoGeneralized Anxiety Disorder 7-Item Screening (JAZMIN-7)Answer Guide:0 = Not at all1 = Several days2 = Over half the days3 = Nearly every dayOver the last 2 weeks, how often have you been bothered by the following problems?Feeling nervous, anxious, or on edge: 1Not being able to stop or control worryinWorrying too much about different things: 2Trouble relaxinBeing so restless that it's hard to sit still: 2Becoming easily annoyed or irritable: 0Feeling afraid as if something awful might happen: 2Answer Guide:0 = Not difficult at all1 = Somewhat difficult2 = Very difficult3 = Extremely difficultHow difficult have these made it for you to do your work, take care of things at home, or get along with other people? 1GAD-7 Screening Results JAZMIN-2 Score: 4GAD-7 Score: 12Functional Impairment: Somewhat difficultRecommendation: Moderate anxietyPHQ-9 1. Over the last 2 weeks, patient reports the following frequency of symptoms: a. Little interest or pleasure in doing things -Nearly every day b. Feeling down, depressed, or hopeless -Nearly every day c. Trouble falling asleep, staying asleep, or sleeping too much -More than half the days d. Feeling tired or having little energy -More than half the days e. Poor appetite or overeating -More than half the days f. Feeling bad about yourself, feeling that you are a failure, or feeling that you have let yourself or your family down -More than half the days g. Trouble concentrating on things such as reading the newspaper or watching television -Not at all h. Moving or speaking so slowly that other people could have noticed. Or being so fidgety or restless that you have been moving around a lot more than usual -More than half the days i. Thinking that you would be better off or that you want to hurt yourself in some way -Not at all2. If you checked off any problems, how difficult have these problems made it for you to do your work, take care of things at home, or get along with other people? -Somewhat DifficultToday's PHQ-9 Results Score: 16 Severity: Moderately Severe Diagnosis Recommendation: Major Depression Functional Impairment: Somewhat DifficultScreening, Brief Intervention, & Referral to Treatment (SBIRT)Pre-Screening Questions How many times have you have 4 or more drinks in a day? 10How many times have you used an illegal drug or used a prescription medication for a non-medical reason? 0Performed by: Felipe Marroquin MA, October 13, 2019 5:20 PMAUDIT How often do you have a drink of alcohol? 2-4 times a month How many drinks containing alcohol do you have on a typical day when you are drinking? 1 or 2 How often do you have four or more drinks on one occasion? Less than monthlyIn the last year, how often have you... Found that you were not able to stop drinking once you had started? Never Failed to do what was normally expected of you because of drinking? Never Needed a first drink in the morning to get yourself going after a heavy drinking session? Never Had a feeling of guilt or remorse after drinking? Never Been unable to remember what happened the night before because you had been drinking? Never Have you or someone else been injured because of your drinking? No Has a relative, friend, doctor, or other health care worker been concerned about your drinking or suggested you cut down? Yes, during the last yearToday's Results: AUDIT Score: 7 AUDIT Interpretation: Negative Performed by: Felipe Marroquin MA, October 13, 2019 5:22 PMPatient History Medical History:AnxietyDepressionPanic attacksHeart murmurIrritable bowel syndromeSurgical History:csectionanal fistula surgeryFamily History:Mother- thyroidMaternal Grandmother- StrokeSocial/Personal History: Chief ComplaintF/U labs History of Present Illness (HPI)I, Jered Lucia MA, am scribing for, and in the presence of, Donnie Rick, DO pt is here today to go over her labs. pt's blood count is good. her blood sugar is fine kidney is good. liver function is really good. pt's cholesterol is good. all of pt's STD tests are negative. pt was exposed to lyme disease that the titer shows. it is a low level pt was probably bitten when she was little and did not know about it. pt states she is a little depressed, her cheated and that is the reason for both the std testing and the slight depression other than that she does feel okay. pt would like to be put on control pt advised to get a Pap done. Transitions of Care InboundProblem ReviewProblem List was reviewed and/or updated during this visit.Medication Reconciliation & ReviewMedication List was reviewed and/or updated during this visit, including review of any cuff-vjb-gaznteb medications, herbal therapies, and/or supplements.Allergy ReviewAllergy List was reviewed and/or updated during this visit.Provider Calculated and Reviewed all Clinical Protocols for patient today. Cancer Screening Pap Smear/HPV TestingReviewed: Previous Comments: 3 years ago- Normal results- [facility] (07/28/2019)Today's Comments: Pt would like to be see in house Review of Systems General: Denies loss of appetite, chills, dizziness, fatigue, fever, continued fever, headache, feeling ill, sweats, night sweats, sleep disturbances, weight loss. Cardiovascular: Denies chest pain, palpitations, feeling faint, trouble breathing w/exertion, SOB upon lying down, SOB at night, peripheral edema, elevated blood pressure, decreased heart rate. Respiratory: Denies cough, difficulty breathing, shortness of breath, excessive sputum, coughing up blood, wheezing, chest pain. Gastrointestinal: Denies nausea, vomiting, bleeding, burning, itching, irritation, cramps, diarrhea, bloody diarrhea, watery diarrhea, constipation, pain or discomfort, feeling any lumps or bumps, pain with BM, pain during receptive anal sex, change in bowel habits, fecal incontinence, abdominal pain, blood in stool, black or tarry stools, jaundice, heartburn, urge to defecate. Physical ExamGeneral Appearance: well nourished, well hydrated, no acute distressRespiratory, Auscultation: clear to auscultation bilaterally; no rales, rhonchi, or wheezesRespiratory, Effort: no intercostal retractions or use of accessory musclesCardiovascular, Auscultation: S1, S2 audible; no murmur, rub, or gallop; RRRGait & Station: normalOrientation: oriented to time, place, and personMood & Affect: no depression, anxiety, or agitationJudgment & Insight: intactCare Management Plan Transitions of CareInboundRate Your HealthIn general, would you say your health is? GoodAssessment & Plan Assessment not SavedScreening examination for venereal disease (BMK25-A54.3): went over resultsMedications: 1.5-30 MG- MCG ORAL TABLETACIDOPHILUS ORAL TABLET CHEWABLEVITAMIN D-[address] TABLETZOLOFT 50 MG ORAL TABLETMedication Changes:Refilled:ZOLOFT 50 MG ORAL TABLET-qd Qty: 90[Tablet] Refills: 1 Method: ElectronicZOLOFT 50 MG ORAL TABLET-qd Qty: 90[Tablet] Refills: 1 Method: ElectronicNew Prescription: 1.5-30 MG-MCG ORAL TABLET-one tab po QD as dir Qty: 3[Packet] Refills: 1 Method: ElectronicJUNEL FE 1.5/30 1.5-30 MG-MCG ORAL TABLET-one tab po QD as dir Qty: 3[Packet] Refills: 1 Method: ElectronicAllergies:No Known Allergies (updated 07/28/2019) Medications:ZOLOFT 50 MG ORAL TABLET (SERTRALINE HCL) qd #90[Tablet] x 1 Route:ORAL Entered and Authorized by: Donnie Rick DO Method used: Electronically to [facility]* (mail-order) [address] [place] [address] Note to Pharmacy: Route: ORAL; RxID: [id number] FE 1.5/30 1.5-30 MG-MCG ORAL TABLET (NORETHIN JAVIER-ETH ESTRAD-FE) one tab po QD as dir #3[Tablet] x 1 Route:ORAL Entered and Authorized by: Donnie Rick DO Method [facility]) [address] [place] [address] Note to Pharmacy: Route: ORAL; RxID: [id number] 50 MG ORAL TABLET (SERTRALINE HCL) qd #90[Tablet] x 1 Route:ORAL Entered and Authorized by: Donnie Rick DO Method used: Electronically to [id number]* (retail) [id number] [place] [address] Note to Pharmacy: Route: ORAL; RxID: [id number] FE 1.5/30 1.5-30 MG-MCG ORAL TABLET (NORETHIN JAVIER-ETH ESTRAD-FE) one tab po QD as dir #3[Packet] x 1 Route:ORAL Entered and Authorized by: Donnie Rick DO Method used: Electronically to [id number]* (retail) [address] [place] [address] Note to Pharmacy: Route: ORAL; RxID: [id number]][Immunization Management] Name Value Range Interpretation Code Description Data Susan rce(s) Supporting Document(s) ID Date Data Source [id number] 10/07/2019 12:22:00 PM EDT [facility] Name Value Range Interpretation Code Description Data Susan rce(s) Supporting Document(s) APPEARANCE U CLEAR CLEAR N [facility] SPEC GR URIN 1.008 1.002-1.035 N [facility] UA COLOR STRAW YELLOW N [facility] ID Date Data Source [id number] 09/04/2019 09:25:00 AM EST [facility] Name Value Range Interpretation Code Description Data Susan rce(s) Supporting Document(s) HCT 48.4 % 36.0-47.0 H [facility] HGB 15.2 g/dL 12.0-15.5 N [facility] MCH 31.4 G/DL pg 32.0-36.5 L [facility] MCHC 29.4 PG % 27.0-33.0 N [facility] PLATELETS 351 10 10*3/mm3 150-450 N [facility] RBC 5.17 10 10*6/mm3 4.00-5.40 [facility] RDW 11.9 % 11.5-14.5 N [facility] WBC TOTAL 6.7 4.0-10.0 N [facility] ID Date Data Source [id number] 09/04/2019 09:25:00 AM [facility] Name Value Range Interpretation Code Description Data Susan rce(s) Supporting Document(s) HGBA1C 6.0 % N [facility] ID Date Data Source [id number] 09/04/2019 09:25:00 AM EST [facility] Name Value Range Interpretation Code Description Data Susan rce(s) Supporting Document(s) VIT D25 TOT 41.3 ng/mL 30.0-100.0 N [facility] BG FASTING 102 mg/dL 70-100 H [facility] T4, FREE 1.14 ng/dL 0.76-1.46 N [facility] TSH 1.840 microintl units/mL 0.358-3.740 N [facility] ID Date Data Source [id number] 09/04/2019 09:23:48 AM [facility] Labs In-House Blood TestsDate/Time Colle cted: September 04, 2019 9:24 AMTest Result Reference Range Normal ValueComments: blood draw done in offcie done in the right ac tolerated well Howie Willis MA, September 04, 2019 9:24 AMAssessment & Plan Orders:[id number] Vst-Est Level I [CPT-[id number]] [id number] - Venipuncture [CPT-54054] Name Value Range Interpretation Code Description Data Susan rce(s) Supporting Document(s) ID Date Data Source [id number] 07/28/2019 11:38:17 AM [facility] Measurements & CalculationsHeight: 69 inches (5 ft. 9 in.) 175.26 cm Weight: 270 pounds 122.73 kg Body Mass Index (BMI): 40.02BMI Interpretation: Morbidly ObeseBody Surface Area (BSA): 2.35Weight Management Education Done (Nutrition/Physical Activity)Vital SignsTemperature: 98.4FPulse Rate: 61 beats/minuteRespiratory Rate: 17 respirations/minuteBlood Pressure: 131/86 O2 Saturation: 95% Vital Signs performed by: Iona Delarosa MA, July 28, 2019 12:03 PMInitial Intake Room #: 13Infectious Disease- Travel Have you or your sexual partner travelled outside of the country recently? NoSmoking, Tobacco or Smoke Exposure StatusSmoke Status: never smokerTobacco Use: NoPassive Smoke Exposure: NoMenstrual HistoryLast Menstrual Period (LMP): 06/17/2019LMP History: ApproximateAny possibility of ? NoComments: irregularHealthcare HistorySince your last office visit...Have you been admitted to the hospital? No Have you been to an emergency room (ER) or urgent care clinic? NoHave you seen another healthcare provider? NoHave you seen a dentist? NoIntake performed by: Iona Delarosa MA, July 28, 2019 11:51 AMRate Your HealthIn general, would you say your health is? GoodPain AssessmentAre you currently having any pain which... You would like your provider to address? No Affects your activity level? NoDepression Screening - PHQ-2Over the last two weeks, have you... Had little interest or pleasure in doing things? Not at all Been feeling down, depressed, or hopeless? Not at all PHQ-2 Score: 0Anxiety Screening - JAZMIN-2Over the last two weeks, have you been... Feeling nervous, anxious, or on edge? Not at all Unable to stop or control worrying? Not at all JAZMIN-2 Score: 0Infectious Disease- Travel Cont. Any possibility of ? NoGeneralized Anxiety Disorder 7-Item Screening (JAZMIN-7)Answer Guide:0 = Not at all1 = Several days2 = Over half the days3 = Nearly every dayOver the last 2 weeks, how often have you been bothered by the following problems?Feeling nervous, anxious, or on edge: 0Not being able to stop or control worryinGAD- 7 Screening Results JAZMIN-2 Score: 0PRAPARE Sociodemographic Characteristics Race: White Ethnicity: Not or Preferred Language: EnglishFamily and Home Address: [address] [place] [address] What is your housing situation today? I have housing Are you worried about losing your housing? NoMoney and Resources What is the highest level of school that you have finished? associate's degree Employed? Yes Your current work situation? [employer] Insurance: UMRIn the past year, have you or any family members you live with been unable to get any of the following when it was really needed? Denies Insecurity: food, utilities, clothing, childcare attendant, phone, legal services, otherIn the past year, have you had trouble affording costs associated with health insurance (such as deductibles, co-payments, etc.)? NoSocial and Emotional Health How often do you see or talk to people that you care about and feel close to? More than 5 times a week How stressed are you? A little bitAdditional Optional Domains In the past 3 months, have you spent more than 2 nights in a row in a correction, [place] health [place] facility, halfway center or juvenile correctional facility? No Has lack of transportation kept you from medical appointments or from getting your medications? NoIn the past year, have you had trouble getting any of the following when it was really needed (check all that apply)?noneIn the past year, have you had trouble paying the costs associated with health care or medicine (such as co-payments, costs for services, prices of medicines)? NoHow confident are you that you can control and manage most of your health problems? Very confident Are you a refugee? No (Country of origin: [place]) Do you feel physically and emotionally safe where you live? Yes In the past year, have you been afraid of a partner, ex-partner? NoScreening, Brief Intervention, & Referral to Treatment (SBIRT)Pre-Screening Questions How many times have you have 4 or more drinks in a day? 0How many times have you used an illegal drug or used a prescription medication for a non- medical reason? 0Performed by: Iona Delarosa MA, July 28, 2019 11:54 AMPatient History Medical History:Surgical History:csectionanal fistula surgeryFamily History:Mother- thyroidMaternal Grandmother- StrokeSocial/Personal History: Smoking Status: never smokerChief Complaintannual exam, new ptHistory of Present Illness (HPI)I, Aurea Vaca MA, am scribing for and in the presence of, Dr Tatiana Joshua MD28 yo female here to establish care, does not have any concerns today. She does not have FH on Paternal Side as she was a donor child. Is not a current smoker, no drug/alcohol abuse. have brought up the options of in house /MH counseling. did not have GD, but she did have two vessel with her son - he was 9lbs.will bring back in 6wks for labs & a follow up to discuss results & create treatment plan- wants CPE labs- has occas joint pain- 8/10 in severity, worse with movmeent, better with rest, non- radiating not asocieated with weaknees- wants Lyme testing. Transitions of Care InboundProblem ReviewProblem List was reviewed and/or updated during this visit.Medication Reconciliation & ReviewMedication List was reviewed and/or updated during this visit, including review of any vymr-tas-hftdwpy medications, herbal therapies, and/or supplements.Allergy ReviewAllergy List was reviewed and/or updated during this visit. Patient has no known allergies.Adult Preventive CareProvider Calculated and Reviewed all Clinical Protocols for patient today. Labs/Meds/Other Counseling-Nutrition and Physical Activity:BMI Interpretation: Morbidly Obese (07/28/2019) Counseling: Done (07/28/2019) Physical Activity: Done (07/28/2019)Cancer Screening Pap Smear/HPV TestingReviewed: Today's Comments: 3 years ago- Normal [facility] General: GEN: No night sweats, weight loss, fevers, chillsEyes: No vision changesEars: No hearing lossNose: No sinus painThroat: No sore throatResp: No sob, wheezingCV: No chest painGI: No abdominal painGU: No dysuria, urinary frequencyMusculoskeletal: No myalgias,+ occas arthralgiasNeuro: No GUERRA, unilateral paresthesias, weaknessLympatics: No Lymph node swellingEndocrine: No polydipsia, polyuriaPhysical ExamGeneral Appearance: well nourished, well hydrated, no acute distressEyes, External: conjunctivae and lids normal, EOMIExternal Ears: normal, no lesions or deformitiesHearing: grossl y intactOtoscopy: canals clear, tympanic membranes intact, no fluid, light reflex intact bilaterallyExternal Nose: normal, no lesions or deformitiesNasal: mucosa, septum, and turbinates normal, nares patentLips/Teeth/Gums: normal dentition, no gingival inflammation, no labial lesionsPharynx: tongue normal, posterior pharynx without erythema or exudate, no thrush/aphthous ulcerRespiratory, Auscultation: clear to auscultation bilaterally; no rales, rhonchi, or wheezesRespiratory, Effort: no intercostal retractions or use of accessory musclesCardiovascular, Auscultation: S1, S2 audible; no murmur, rub, or gallop; RRRPeripheral Circulation: no clubbing, cyanosis, edema, or varicositiesAbdomen: soft, non-tender, no masses, bowel sounds normalGait & Station: normalSkin, Inspection: no rashes, lesions, or ulcerationsOrientation: oriented to time, place, and personMood & Affect: no depression, anxiety, or agitationJudgment & Insight: intactCare Management Plan Transitions of CareInboundRate Your HealthIn general, would you say your health is? GoodAssessment & Plan Problems:Added: Pain in unspecified joint (FSV11-J76.50) Assessment: Instructions: Counseled patient on all diagnoses/ treatments. Return to clinic/ ER for any worsening symptoms or concernsLabs orderedEncounter for screening for other metabolic disorders ([id number]-F90.228) Assessment: Instructions: Counseled patient on all diagnoses/ treatments. Return to clinic/ ER for any worsening symptoms or concernsLabs orderedPatient Instructions/Care Plan: Pain in unspecified joint: Counseled patient on all diagnoses/ treatments. Return to clinic/ ER for any worsening symptoms or concernsLabs orderedEncounter for screening for other metabolic disorders: Counseled patient on all diagnoses/ treatments. Return to clinic/ ER for any worsening symptoms or concernsLabs ordered Plan developed in collaboration with patient and/or familyMedications:ACIDOPHILUS ORAL TABLET CHEWABLEVITAMIN D-[address] TABLETZOLOFT 50 MG ORAL TABLETMedication Changes:Added: ZOLOFT 50 MG ORAL TABLET-qdVITAMIN D-[address] TABLETACIDOPHILUS ORAL TABLET CHEWABLEAllergies:No Known Allergies (updated 07/28/2019) Orders:COMP METABOLIC PANEL [CPT-07106] CBC W/DIFF [CPT-03698] HgBA1c [CPT-02668] LIPID PANEL [CPT- 09997] TSH [CPT-29981] T-4 free [CPT-19615] Vitamin D 250H Unspecified [CPT- 66602] URINALYSIS [CPT-26276] Lyme Antibody [CPT-18825] Adult - Ofc Vst, NEW, Level IV [CPT-38746] Follow-Up Return to clinic: in 30 days for f/uAdditional Follow-Up: Counseled patient on all diagnoses/ treatments. Return to clinic/ ER for any worsening symptoms or concernsClinical Visit Summary DeclinedVaccines Administered/Entered:Vaccination Group: H1N1 InfluenzaSeries: 1 NOT GIVENVaccination: Influenza A (H1N1) Monoval PF Intramuscular SuspensionReason Not Given: Patient decisionEntered Date: 07/28/2019 12:00 AMComments: done at workEntered by: Iona Delarosa MA Name Value Range Interpretation Code Description Data Susan rce(s) Supporting Document(s) Procedure Social History Code Duration Value Status Description Data Source(s ) Smoking 06/13/2020 12:00:00 AM EST Patient has never smoked co mpleted Patient has never smoked [facility] ([facility]) Vital Signs ID Date Data Source UNK Name Value Range Interpretation Code Description Data Source(s) Body mass index (BMI) [Ratio] 36.2 kg/m2 36.2 k g/m2 [facility] ([facility], [facility]) Body height 69 [in_i] 69 [in_i] [facility] ([facility]) 5'9" Body weight 245.00 [lb_av] 245.00 [lb_av] [facility] T ([facility], [facility]) Body temperature 98.6 [degF] 98.6 [degF] [facility] ([facility], [facility]) Oxygen saturation in Arterial blood by Pulse oximetry 96 % 96 % [facility] ([facility], [facility]) Respiratory rate 16 /min 16 /min [facility] ( [facility], [facility]) Heart rate 92 /min 92 /min [facility] ([facility], [facility]) Diastolic blood pressure 85 mm[Hg] 85 mm[Hg] [facility] ([facility], [facility]) Systolic blood pressure 131 mm[Hg] 131 mm[Hg] [facility] ([facility], [facility])
--- OUTSIDE RECORDS SUMMARY | 2020-09-16 11:28 | CCD ---
Author Author [facility] Organization [facility] Address Unknown Phone Unavailable Care Team Providers Care Cable Strander Name Role Phone Janina Sam MD Unavailable [...] Unavailable Unavailable Janina Sam MD Unavailable Unavailable Eev JOSHUA MD Unavailable Unavailable Eve JOSHUA MD [...] Unavailable Unavailable Eve JOSHUA MD Unavailable Unavailable JACOBOEve HAMMONDS MD Unavailable Unavailable JACOBOEve Silverio MD Unavailable Unavailable Eve JOSHUA MD Unavailable [...] Eve SIMPSON MD Unavailable Unavailable Quiñones, Silvia RADIOGRAPHER Unavailable Unavailable Quiñones, Silvia RADIOGRAPHER Unavailable Unavailable Quiñones, Silvia RADIOGRAPHER Unavailable Unavailable Quiñones, Silvia RADIOGRAPHER Unavailable Unavailable Quiñones, Silvia RADIOGRAPHER Unavailable Unavailable Quiñones, Silvia RADIOGRAPHER Unavailable Unavailable Quiñones, Silvia RADIOGRAPHER Unavailable Unavailable Quiñones, Silvia RADIOGRAPHER Unavailable Unavailable Quiñones, Silvia RADIOGRAPHER Unavailable Unavailable Quiñones, Silvia RADIOGRAPHER Unavailable Unavailable Quiñones, Silvia RADIOGRAPHER Unavailable Unavailable Re-disclosure Warning The records that [...] is protected by Article 27-F of the [facility] Public Health law. If you continue you may have access to information: Regarding HIV / AIDS; Provided by facilities licensed or operated by the [facility] Office of Mental Health; or Provided by the [facility] Office for People With Developmental Disabilities. If such information is present, then the following [facility] mandated warning applies: This information has been [...] law may result in a fine or intermediate sentence or both. A general authorization for the release of medical or other information is NOT sufficient authorization for further disc losure. Encounters Encounter Providers Location Date Indications Data Source(s ) Outpatient Attender: Silvia chen 06/13/2020 07:35:00 AM EST [facility] ([facility], [facility]) Outpatient Attender: Lio Sam MD 05/27/2020 10:17:00 AM EDT [facility] Outpatient Attender: Lio Sam MD 05/27/2020 08:57:01 AM EDT [facility] Outpatient Attender: Lio Sam MD 05/19/2020 04:49:01 PM EDT [facility] Outpatient Attender: Lio Sam MD 05/12/2020 09:43:00 AM EDT [facility] Outpatient Attender: Lio Sam MD 05/01/2020 10:04:00 AM EDT [facility] Outpatient Attender: Lio Sam MD 04/29/2020 04:42:01 PM EDT [facility] Outpatient Attender: Lio Sam MD 04/29/2020 04:41:01 PM EDT [facility] Outpatient Attender: Lio Sam MD 04/29/2020 03:16:00 PM EDT [facility] Outpatient Attender: Lio Sam MD 04/01/2020 01:24:00 PM EDT [facility] Outpatient Attender: Lio Sam MD 03/18/2020 08:45:02 AM EDT [facility] Outpatient Attender: Lio SOLIS 02/12/2020 08:01:20 [place] [address] [place] [address] [address] 11/16/2019 12:00:00 AM EDT eCW1 ([facility]) Outpatient Attender: Lio Sam MD FP 10/20/2019 01:04:00 PM EDT [facility] Outpatient Attender: Lio Sam MD FP 10/13/2019 05:50:00 PM EDT [facility] Outpatient Attender: Lio Sam MD FP 10/13/2019 05:46:00 PM EDT [facility] Outpatient Attender: Lio Sam MD FP 10/12/2019 11:32:01 AM EDT [facility] Outpatient Attender: TATIANA JOSHUA MD FP 10/09/2019 12:22:01 P M T [facility] Outpatient Attender: TATIANA JOSHUA MD FP 10/08/2019 11:22:37 A M T [facility] Outpatient Attender: TATIANA JOSHUA MD 10/07/2019 06:13:01 P M [facility] Outpatient Attender: TATIANA JOSHUA MD FP 10/07/2019 06:13:01 P M [facility] Outpatient Attender: TATIANA JOSHUA MD FP 10/06/2019 04:09:[address] [facility] Outpatient Attender: TATIANA JOSHUA MD FP 10/02/2019 01:12:02 P [facility] Outpatient Attender: TATIANA JOSHUA MD FP 10/02/2019 01:11:01 P [facility] Outpatient Attender: TATIANA JOSHUA MD FP 09/17/2019 12:03:02 P [facility] Outpatient Attender: TATIANA JOSHUA MD FP 09/16/2019 11:23:02 A [facility] Outpatient Attender: TATIANA JOHSUA MD FP 09/16/2019 11:23:01 A [facility] Outpatient Attender: TATIANA JOSHUA MD FP 09/15/2019 03:41:00 P [facility] Outpatient Attender: TATIANA JSOHUA MD FP 09/09/2019 05:23:01 P [facility] Outpatient Attender: TATIANA JOSHUA MD FP 09/04/2019 10:09:01 A M EST [facility] Outpatient Attender: TATIANA JOSHUA MD 09/04/2019 10:08:00 A [facility] Outpatient Attender: TATIANA JOSHUA MD 09/04/2019 09:31:02 A [facility] Outpatient Attender: TATIANA JOSHUA MD 09/01/2019 04:18:00 P [facility] Outpatient Attender: TATIANA JOSHUA MD 07/29/2019 11:50:01 A [facility] Outpatient Attender: TATIANA JOSHUA MD 07/28/2019 11:44:01 A [facility] Outpatient Attender: TATIANA JOSHUA MD 07/28/2019 11:43:00 A [facility] Outpatient Attender: TATIANA JOSHUA MD 07/28/2019 11:41:00 A [facility] Outpatient Attender: TATIANA JOSHUA MD 07/28/2019 11:39:01 A [facility] Outpatient Attender: TATIANA JOSHUA MD 07/24/2019 10:52:01 A [facility] Outpatient [facility] 07/24/2019 10:51:00 AM [facility] Insurance Providers Payer name Policy type / Coverage type Policy ID Covered republican ID Covered republican's relationship to santoyo Policy Santoyo Plan Information UMR [facility] [id number] SP [id number] SELF PAY ONLY [id number] SP [id number] D Amer[employer] Life Ins S [id number] S [id number] UMR P [id number] S [id number] UMR P [id number] S [id number] [employer] S [id number] S [id number] Medicaid Dental P [id number] S [id number] FORMERLY [facility] COMMUNITY PLAN [facility] [id number] SP [id number] [facility] O [id number] S [id number] MEDICAID M [id number] S [id number] ANSI-Medicaid [id number] ANSI-Medicaid [id number] ANSI-Medicaid [id number] ANSI-Medicaid [id number] ANSI-Medicaid [id number] ANSI-Medicaid [id number] ANSI-Medicaid [id number] ANSI-Medicaid [id number] [facility] [id number] Self [id number] ANSI-Medicaid [id number] ANSI-Medicaid [id number] ANSI-Medicaid [id number] ANSI-Medicaid [id number] [place]-Medicaid [id number] ANSI-Medicaid [id number] FORMERLY [facility] COMMUNITY PLAN [facility] [id number] SP [id number] [facility] Health Maintenance Organization (HMO) [id number] Self [id number] [facility] [id number] SP [id number] [facility] [id number] SP [id number] [facility] [id number] SP [id number] MEDICAID [id number] SP [id number] SELF PAY UNAVAILABLE SP UNAVAILA BLE Medicaid [place] Medicaid Self BCBS OF [place] WATN 306/806 [id number] MO2 [id number] [employer] BCBS P [id number] C VYA D [employer] BCBS Dental O [id number] P [id number] Problems, Conditions, and Diagnoses Code Display Name Description Problem Type Effective Dates Data Source(s) 311 Chronic depression Chronic depression 0 04:40:09 PM EDT [facility] V74.5 Screening examination for venereal disea se Screening examination for venereal disease 10/02/2019 01:10:13 PM [facility] M25.50 Pain in unspecified joint Pain in unspecified joint 07/29/2019 11:49:47 AM [facility] Z13.228 Encounter for screening for other metabo lic disorders Encounter for screening for other metabolic disorders 07/29/2019 11:49:47 AM [facility] Results ID Date Data Source [id number] 07/04/2020 12:00:00 AM EST [facility] Name Value Range Interpretation Code Description Data Susan rce(s) Supporting Document(s) 2019-nCoV RNA XXX CORRINE+probe-Imp [facility] This lab was ordered by [facility] and reported by [employer]. ID Date Data Source [id number] 06/13/2020 12:00:00 AM EST [facility] Name Value Range Interpretation Code Description Data Susan rce(s) Supporting Document(s) SARS coronavirus 2 Ag [facility] This lab was ordered by [facility] and reported by [facility]. ID Date Data Source [id number] 05/27/2020 08:32:28 AM EDT [facility] Vital SignsBlood Pressure: 134/83 Patient History Medical History:AnxietyDepressionPanic attacksHeart murmurIrritable bowel syndromeSurgical History:csectionanal fistula surgeryFamily History:Mother- thyroidMaternal Grandmother- StrokeSocial/Personal History: Current Problems: Chronic depression (ICD-311) (ZAS55-S62.1)Screening examination for venereal disease (ICD-V74.5) (WSK85-A74.3)Pain in unspecified joint (ICD10- M25.50)Encounter for screening [...] setting, N95, surgical mask, hair covering, gown. [facility] with patient. No problems or concerns today. Pt. was seeing Dr. Arias. Pt. has a lingual retainerOral cancer screening-no significant find ings. [facility]- handscaled and used cavitron in all quads-pt. tolerated well, swedish- mint prophy paste, floss, 4 BW's, 3 [...] AM): ; lenard (May 27 2020 10:16AM): [facility](-). CC: none. Reviewed Xrays. Exam: no caries detected. OCS: WNL, IO/ EO completed, No significant hard findings upon clinical exam.Additional PPE requirements due to COVID-19 in the dental setting, N95, surgical mask, hair covering, gown and shieldPt was cooperative. OHI given Referral: N/A NV:recallSuzanne Cain RDH by lenard (05/27/2020 10:16 AM): Tooth [...] rce(s) Supporting Document(s) ID Date Data Source [id number] 04/29/2020 03:13:25 PM EDT [facility] Measurements & CalculationsHeight: 69 inches [...] during this visit, including review of any ugit-jif-uqxacnh medications, herbal therapies, and/or supplements.Allergy ReviewAllergy List [...] ORAL VITAMIN D-[address] TABLET Qty: [id number] Refills: 60[Tablet] To: RA VITAMIN D-3 25 MCG (1000 UT) ORAL TABLET-One po bid Qty: 60[Tablet] Refills: 2 To: ACIDOPHILUS ORAL TABLET CHEWABLE-One tablet by mouth every day Qty: 30[Tablet] Refills: 5Allergies:No Known Allergies (updated 07/28/2019) Orders:Adult - Ofc Vst, EST, Level III [CPT-26592] Medications:ACIDOPHILUS ORAL TABLET CHEWABLE (PROBIOTIC PRODUCT) One tablet by mouth every day #30[Tablet] x 5 Entered and Authorized by: Lio Sam MD Method used: Electronically to [facility]* (mail-order) [address] [place], [place] [address] [address] [place] [address] Note to Pharmacy: Route: ORAL; RxID: [id number] VITAMIN D-3 25 MCG (1000 UT) ORAL TABLET (CHOLECALCIFEROL) One po bid #60[Tablet] x 2 Route:ORAL Entered and Authorized by: Lio Sam MD Method used: Electronically to [facility]* (mail-order) [address] [place], [place] [id number] Note to Pharmacy: Route: ORAL; RxID: [id number] 50 MG ORAL TABLET (SERTRALINE HCL) qd #30[Tablet] x 5 Route:ORAL Entered and Authorized by: Lio Sam MD Method used: Electronically to [facility]* (mail-order) [address] [place] [address] Note to Pharmacy: Route: ORAL; RxID: [id number] signed by Lio Sam MD on 04/29/2020 at 4:40 PM Name Value Range Interpretation Code Description Data Susan rce(s) Supporting Document(s) ID Date Data Source [id number] 10/13/2019 05:10:06 PM EDT [facility] Measurements & CalculationsHeight: 69 inches [...] during this visit, including review of any jaln-dzh-etwgkdn medications, herbal therapies, and/or supplements.Allergy ReviewAllergy List was reviewed and/or updated during this visit.Provider Calculated and Reviewed all Clinical Protocols for patient today. Cancer Screening Pap Smear/HPV TestingReviewed: Previous Comments: 3 years ago- Normal results- [facility] (07/28/2019)Today's Comments: Pt would like to be [...] Assessment not SavedScreening examination for venereal disease (AFM40-U89.3): went over resultsMedications: 1.5-30 MG- MCG ORAL [...] Donnie Rick DO Method used: [facility]) [address] [place] [address] Note to Pharmacy: Route: ORAL; RxID: [id number] FE 1.5/30 1.5-30 MG-MCG ORAL TABLET (NORETHIN JAVIER-ETH ESTRAD-FE) one tab po QD as dir #3[Tablet] x 1 Route:ORAL Entered and Authorized by: Donnie Rick DO Method used: [facility] ([facility]) [facility] [place] [address] Note to Pharmacy: Route: ORAL; RxID: [id number] 50 MG ORAL TABLET (SERTRALINE HCL) qd #90[Tablet] x 1 Route:ORAL Entered and Authorized by: Donnie Rick DO Method used: Electronically to [id number]* (retail) [address] [place] [address] Note to Pharmacy: Route: ORAL; RxID: [id number] 1.5/30 1.5-30 MG-MCG ORAL TABLET (NORETHIN JAVIER-ETH ESTRAD-FE) one tab po QD as dir #3[Packet] x 1 Route:ORAL Entered and Authorized by: Donnie Rick DO Method used: Electronically to [id number]* (retail) [address] [facility] [place] [address] Note to Pharmacy: Route: ORAL; RxID: [id number]][Immunization Management] Name Value Range Interpretation Code Description Data Susan rce(s) Supporting Document(s) ID Date Data Source [id number] 10/07/2019 12:22:00 PM EDT [facility] Name Value Range Interpretation Code Description Data Susan rce(s) Supporting Document(s) APPEARANCE U CLEAR CLEAR N [facility] SPEC GR URIN 1.008 1.002-1.035 N [facility] UA COLOR STRAW YELLOW N [facility] ID Date Data Source [id number] 09/04/2019 09:25:00 AM EST [facility] Name Value Range Interpretation Code Description Data Susan rce(s) Supporting Document(s) HCT 48.4 % 36.0-47.0 H [facility] HGB 15.2 g/dL 12.0-15.5 N [facility] MCH 31.4 G/DL pg 32.0-36.5 L [facility] MCHC 29.4 PG % 27.0-33.0 N [facility] PLATELETS 351 10 10*3/mm3 150-450 N [facility] RBC 5.17 10 10*6/mm3 4.00-5.40 N [facility] RDW 11.9 % 11.5-14.5 N [facility] WBC TOTAL 6.7 4.0-10.0 [facility] ID Date Data Source [id number] 09/04/2019 09:25:00 AM [facility] Name Value Range Interpretation Code Description Data Susan rce(s) Supporting Document(s) HGBA1C 6.0 % N [facility] ID Date Data Source [id number] 09/04/2019 09:25:00 AM [facility] Name Value Range Interpretation Code Description Data Susan rce(s) Supporting Document(s) VIT D25 TOT 41.3 ng/mL 30.0-100.0 N [facility] BG FASTING 102 mg/dL 70-100 H [facility] T4, FREE 1.14 ng/dL 0.76-1.46 N [facility] TSH 1.840 microintl units/mL 0.358-3.740 N [facility] ID Date Data Source [id number] 09/04/2019 09:23:48 AM [facility] Labs In-House Blood TestsDate/Time Colle cted: September 04, 2019 9:24 AMTest Result Reference Range Normal ValueComments: blood draw done in offcie done in the right ac tolerated well Howie Willis MA, September 04, 2019 9:24 AMAssessment & Plan Orders:[id number] Vst-Est Level I [CPT-65348] 24224 - Venipuncture [CPT-77702] Name Value Range Interpretation Code Description Data Susan rce(s) Supporting Document(s) ID Date Data Source [id number] 07/28/2019 11:38:17 AM [facility] Measurements & CalculationsHeight: 69 inches (5 [...] or Preferred Language: EnglishFamily and Home Address: [address] [place] [address] What is your housing situation today? I [...] really needed? Denies Insecurity: food, utilities, clothing, children's tutor, phone, legal services, otherIn the past year, [...] 2 nights in a row in a intermediate, fpc, residential center or juvenile correctional facility? No Has [...] during this visit, including review of any djoy-fop-qvwfzuj medications, herbal therapies, and/or supplements.Allergy ReviewAllergy List was reviewed and/or updated during this visit. Patient has no known allergies.Adult Preventive CareProvider Calculated and Reviewed all Clinical Protocols for patient today. Labs/Meds/Other Counseling-Nutrition and Physical Activity:BMI Interpretation: Morbidly Obese (07/28/2019) Counseling: Done (07/28/2019) Physical Activity: Done (07/28/2019)Cancer Screening Pap Smear/HPV TestingReviewed: Today's Comments: 3 years ago- [facility] General: GEN: No night sweats, [...] & Plan Problems:Added: Pain in unspecified joint (VWJ76-H59.50) Assessment: Instructions: Counseled patient on all diagnoses/ treatments. Return to clinic/ ER for any worsening symptoms or concernsLabs orderedEncounter for screening for other metabolic disorders (ORM81-R31.228) Assessment: Instructions: Counseled patient on all diagnoses/ [...] Known Allergies (updated 07/28/2019) Orders:COMP METABOLIC PANEL [CPT-20621] CBC W/DIFF [CPT-99342] HgBA1c [CPT-92739] LIPID PANEL [CPT- 99346] TSH [CPT-48207] T-4 free [CPT-17435] Vitamin D 250H Unspecified [CPT- 90258] URINALYSIS [CPT-91843] Lyme Antibody [CPT-06550] Adult - Ofc Vst, NEW, Level IV [CPT-13038] Follow-Up Return to clinic: in 30 days [...] co mpleted Patient has never smoked [facility] ([facility]) Vital Signs ID Date Data Source UNK Name Value Range Interpretation Code Description Data Source(s) Body mass index (BMI) [Ratio] 36.2 kg/m2 36.2 k g/m2 [facility] ([facility], [facility]) Body height 69 [in_i] 69 [in_i] [facility] ([facility]) 5'9" Body weight 245.00 [lb_av] 245.00 [lb_av] [facility] T ([facility], [facility]) Body temperature 98.6 [degF] 98.6 [degF] [facility] ([facility], [facility]) Oxygen saturation in Arterial blood by Pulse oximetry 96 % 96 % [facility] ([facility], [facility]) Respiratory rate 16 /min 16 /min [facility] ( [facility], [facility]) Heart rate 92 /min 92 /min [facility] ([facility], [facility]) Diastolic blood pressure 85 mm[Hg] 85 mm[Hg] [facility] ([facility], [facility]) Systolic blood pressure 131 mm[Hg] 131 mm[Hg] [facility] ([facility], [facility])
[2020-09-16 11:45] VITALS: BP 138/97
== END 2020-09-16 11:48 | disposition home or self-care (01) ==
LOC: M ED 09:43
DX: F43.0 Acute stress reaction (principal); F41.9 Anxiety disorder, unspecified; Z79.899 Other long term (current) drug therapy

== ENCOUNTER → 2022-11-13 | Outpatient (REF) | payer OTHER ==
[~2022-11-13] MED LIST changes: -OFLO3OPSO; +OFLO5DRO
[2022-11-13 15:49] LABS: ALBUMIN 3.8 G/DL (3.2-5.2); ALKALINE PHOSPHATASE 79 U/L (46-116); ALT/SGPT 29 U/L (7.0-40); AST/SGOT 25 U/L (<34); BILIRUBIN,TOTAL 0.6 MG/DL (0.3-1.2); BLOOD UREA NITROGEN 10 MG/DL (9-23); CALCIUM LEVEL 9.1 MG/DL (8.5-10.1); CARBON DIOXIDE LEVEL 27 MMOL/L (20-31); CHLORIDE LEVEL 103 MMOL/L (98-107); CHOLESTEROL LEVEL 193 MG/DL (<200); CHOLESTEROL RISK RATIO 2.83 (<5); CREATININE FOR GFR 0.81 MG/DL (0.55-1.30); GLOMERULAR FILTRATION RATE > 60.0 (>60); GLUCOSE, FASTING 85 MG/DL (60-100); HDL CHOLESTEROL 68.1 MG/DL (>40); LDL CHOLESTEROL 103.9 MG/DL (<100); NON-HDL-C 124.9 MG/DL; POTASSIUM SERUM 4.3 MMOL/L (3.5-5.1); SODIUM LEVEL 138 MMOL/L (136-145); THYROID STIMULATING HORMONE 2.425 uIU/ML (0.55-4.78); TOTAL PROTEIN 6.8 G/DL (5.7-8.2); TRIGLYCERIDES LEVEL 105 MG/DL (<150)
[2022-11-13 16:36] LABS: HEMOGLOBIN A1c 5.4 % (4.0-6.0)
== END ==
LOC: M LAB REF 12:41
PROVIDERS: ATTEND Family Medicine Addiction Medicine
DX: E66.9 Obesity, unspecified (principal); Z68.41 Body mass index [BMI] 40.0-44.9, adult